=== PATIENT | male | born 1995 | race Caucasian/White ===

== ENCOUNTER 2017-08-30 23:35 | Emergency (ER) | payer MEDICAID ==
[~2017-08-30] VITALS: Ht 185.4 cm; Wt 167.8 kg
[2017-08-30 23:52] VITALS: Ht 185.4 cm; Wt 167.8 kg
[2017-08-31 00:42] VITALS: BP 120/60
== END 2017-08-31 00:43 | disposition home or self-care (01) ==
LOC: ED 23:35
DX: L60.0 Ingrowing nail (principal)